=== PATIENT | female | born 1955 | race Caucasian/White ===

== ENCOUNTER 2019-04-14 18:37 | Emergency (ER) | payer MEDICAID ==
[~2019-04-14] VITALS: Ht 167.6 cm; Wt 73.6 kg
[~2019-04-14 18:37] MED LIST: ATOR10TA PO; MECL12.5 PO
[2019-04-14] MEDS ORDERED: HYDROcodone/acetaminophen 5mg/325mg tablet PO ONE (19:50)
[2019-04-14] MEDS ORDERED: HYDR-3965 PO (20:38)
[2019-04-14 20:52] VITALS: BP 117/72
== END 2019-04-14 20:51 | disposition home or self-care (01) ==
LOC: ER 18:37
DX: S30.0XXA Contusion of lower back and pelvis, initial encounter (principal); M53.3 Sacrococcygeal disorders, not elsewhere classified; Z79.899 Other long term (current) drug therapy; W01.0XXA Fall on same level from slipping, tripping and stumbling without subsequent striking against object, initial encounter; Y93.89 Activity, other specified; Y92.89 Other specified places as the place of occurrence of the external cause; Y99.8 Other external cause status
CPT/HCPCS: 72131; 72192; 99284

== ENCOUNTER 2024-02-18 06:44 | Day surgery (SDC) | payer MEDICARE, MEDICAID ==
[2024-02-18] VITALS (11 sets, daily range): BP systolic 70–111; BP diastolic 38–61; PULSE 50–66; RESP 16; TEMP 97.5; O2SAT 93–100
[~2024-02-18] VITALS: Ht 167.6 cm; Wt 61.5 kg
[~2024-02-18 06:44] MED LIST changes: +cefazolin 2gm/D5W 100mL 100 ML IV ONE
[2024-02-18] MEDS ORDERED: POTA8TAB69 PO (07:14)
[2024-02-18] MEDS ORDERED: LAXATIVE (07:14)
[2024-02-18] MEDS ORDERED: CARV6.253 PO (07:14)
[2024-02-18] MEDS ORDERED: ASPI81TA52 PO (07:14)
[2024-02-18] MEDS ORDERED: PRAV80TA3 PO (07:14)
[2024-02-18] MEDS ORDERED: APIX5TAB3 PO (07:14)
[2024-02-18] MEDS ORDERED: FURO20TA4 PO (07:17)
[2024-02-18 08:06] LABS: BASOPHILS % (AUTO) 0.8 % (0-1); EOSINOPHILS # (AUTO) 0.1 X10'3 (0-0.9); EOSINOPHILS % (AUTO) 2.9 % (0-6); HEMATOCRIT 47.2 % (35.0-45.0); HEMOGLOBIN 15.3 g/dl (12.0-16.0); LYMPHOCYTES # (AUTO) 1.6 X10'3 (1.1-4.8); LYMPHOCYTES % (AUTO) 36.7 % (21-51); MEAN CORPUSCULAR HEMOGLOBIN 28.3 PG (27.0-31.0); MEAN CORPUSCULAR HGB CONC 32.4 g/dL (33.0-36.5); MEAN CORPUSCULAR VOLUME 87.4 FL (78-98); MEAN PLATELET VOLUME 9.1 FL (7.4-10.4); MONOCYTES # (AUTO) 0.3 X10'3 (0-0.9); MONOCYTES % (AUTO) 7.8 % (2-12); NEUTROPHILS # (AUTO) 2.3 X10'3 (1.8-7.7); NEUTROPHILS % (AUTO) 51.8 % (42-75); PLATELET COUNT 173 X10'3 (140-440); WHITE BLOOD COUNT 4.4 X10'3 (4.5-11.0)
[2024-02-18] MEDS: vancomycin/NS 1 GM in NS 250 ML IV ONE (08:10)
[2024-02-18] MEDS: normal saline 1000ml 1,000 ML IV SCH (08:11)
[2024-02-18 08:30] LABS: ALBUMIN 3.7 G/DL (3.4-5.0); ANION GAP 8 (8-16); BLOOD UREA NITROGEN 15 MG/DL (7-18); BUN/CREATININE RATIO 16.9 (10.0-20.0); CALCIUM 9.5 MG/DL (8.5-10.1); CHLORIDE 109 MMOL/L (99-107); CREATININE 0.89 MG/DL (0.40-0.90); GLUCOSE 84 MG/DL (70-104); MAGNESIUM 2.2 MG/DL (1.5-2.4); POTASSIUM 3.4 MMOL/L (3.5-5.1); SODIUM 147 MMOL/L (135-145); TOTAL CARBON DIOXIDE 30.4 MMOL/L (24-32); eCRCL 57 ML/MIN; eGFR 63 ML/MIN
[2024-02-18] MEDS ORDERED: midazolam 1 mg/ML 2ml injection ONE ×2 (08:37→10:05)
[2024-02-18] MEDS ORDERED: vancomycin 1,000mg inj ONE (08:37)
[2024-02-18] MEDS ORDERED: LIDOcaine 1% W/epiNEPHrine 1:100,000 20ml vial ONE (08:37)
[2024-02-18] MEDS ORDERED: fentaNYL/PF 50MCG/1 ML 2ML syringe ONE (08:37)
[2024-02-18 09:38] LABS: PROTHROMBIN TIME 10.3 SECONDS (9.0-12.0)
[2024-02-18] MEDS ORDERED: HYDROmorphone 1 mg/ml syringe ONE (10:11)
[2024-02-18] MEDS ORDERED: HYDROcodone/acetaminophen 10/325mg tab PO PRN (11:15)
[2024-02-18] MEDS ORDERED: HYDROcodone/acetaminophen 5mg/325mg tablet PO PRN (11:15)
== END 2024-02-18 14:05 | disposition home or self-care (01) ==
LOC: SSTAY O 06:44
PROVIDERS: ATTEND Internal Medicine Cardiovascular Disease
DX: Z45.010 Encounter for checking and testing of cardiac pacemaker pulse generator [battery] (principal); I42.9 Cardiomyopathy, unspecified
CPT/HCPCS: 33229; 36415; 80048; 83735; 85025; 85610; 93005; 99152; 99153; A4615; C2621; J1170; J2250; J3010; J3370; J3490; J7030

== ENCOUNTER 2024-08-21 18:17 | Observation (INO) | payer MEDICARE, MEDICAID ==
[~2024-08-21] VITALS: Ht 165.1 cm; Wt 59.5 kg
[~2024-08-21 18:17] MED LIST changes: +APIX5TAB3 PO; +ASPI81TA52 PO; -ATOR10TA PO; +CARV6.253 PO; +FURO20TA4 PO; +LAXATIVE; -MECL12.5 PO; +POTA8TAB69 PO; +PRAV80TA3 PO; -cefazolin 2gm/D5W 100mL 100 ML IV ONE
[2024-08-21 18:52] LABS: MEAN PLATELET VOLUME 9.3 FL (7.4-10.4); WHITE BLOOD COUNT 7.4 X10'3 (4.5-11.0)
[2024-08-21 19:05] LABS: ALANINE AMINOTRANSFERASE 18 U/L (12-78); ALBUMIN 3.5 G/DL (3.4-5.0); ALBUMIN/GLOBULIN RATIO 0.8 (1.1-1.5); ALKALINE PHOSPHATASE 90 IU/L (46-116); ANION GAP 6 (8-16); BILIRUBIN,TOTAL 0.8 MG/DL (0.1-1.0); BLOOD UREA NITROGEN 12 MG/DL (7-18); BUN/CREATININE RATIO 13.2 (10.0-20.0); CALCIUM 9.9 MG/DL (8.5-10.1); CHLORIDE 105 MMOL/L (99-107); CREATININE 0.91 MG/DL (0.40-0.90); GLUCOSE 103 MG/DL (70-104); SODIUM 142 MMOL/L (135-145); TOTAL CARBON DIOXIDE 30.8 MMOL/L (24-32); TOTAL PROTEIN 7.7 G/DL (6.4-8.2); eCRCL 52 ML/MIN; eGFR 62 ML/MIN
[2024-08-21 19:13] LABS: PRO BRAIN NATRIURETIC PEPTIDE 406 PG/ML (0-125)
[2024-08-21 19:14] LABS: ASPARTATE AMINO TRANSFERASE 29 U/L (10-37); POTASSIUM 4.2 MMOL/L (3.5-5.1)
[2024-08-21 19:32] LABS: BASOPHILS % (AUTO) 0.4 % (0-1); EOSINOPHILS # (AUTO) 0.1 X10'3 (0-0.9); EOSINOPHILS % (AUTO) 1.7 % (0-6); HEMATOCRIT 48.8 % (35.0-45.0); LYMPHOCYTES # (AUTO) 1.8 X10'3 (1.1-4.8); LYMPHOCYTES % (AUTO) 24.7 % (21-51); MEAN CORPUSCULAR HEMOGLOBIN 29.4 PG (27.0-31.0); MEAN CORPUSCULAR HGB CONC 32.7 g/dL (33.0-36.5); MEAN CORPUSCULAR VOLUME 89.8 FL (78-98); MONOCYTES # (AUTO) 0.8 X10'3 (0-0.9); MONOCYTES % (AUTO) 10.5 % (2-12); NEUTROPHILS # (AUTO) 4.6 X10'3 (1.8-7.7); NEUTROPHILS % (AUTO) 62.7 % (42-75); PLATELET COUNT 245 X10'3 (140-440); RED BLOOD COUNT 5.43 X10'6 (4.20-5.60); RED CELL DISTRIBUTION WIDTH 16.6 % (11.5-14.5)
[2024-08-21] MEDS: aspirin 81mg tab.chew PO ONE (20:53)
[2024-08-21] MEDS: cyclobenzaprine 10mg tablet PO ONE (23:06)
[2024-08-21] MEDS: carVEDilol 3.125mg tablet PO SCH (23:07)
[2024-08-21] MEDS: apixaban 5mg tablet PO SCH (23:07)
[2024-08-21 23:19] LABS: APTT 27 SECONDS (22-32); INR 1.1 INR; PROTHROMBIN TIME 11.1 SECONDS (9.0-12.0)
[2024-08-22 03:37] LABS: BILIRUBIN,URINE NEGATIVE (Neg); CLARITY,URINE TURBID (Clear); COLOR,URINE YELLOW (Yellow); GLUCOSE, URINE NEGATIVE (Neg); KETONES,URINE TRACE mg/dl (Neg); LEUKOCYTE ESTERASE ,URINE NEGATIVE (Neg); NITRITES, URINE POSITIVE (Neg); OCCULT BLOOD,URINE NEGATIVE (Neg); PH,URINE 5.5 (4.8-8.0); PROTEIN,URINE NEGATIVE (Neg); UROBILINOGEN,URINE 0.2 E.U/dL (0.2-1.0)
[2024-08-22 03:46] LABS: BACTERIA,URINE 4+ /HPF (Neg); RBC,URINE NONE SEEN /HPF (0-2); SQUAMOUS EPITHELIAL CELL,UR FEW /LPF (FEW); UA COLLECTION TYPE CLN CATCH MIDSTREAM
[2024-08-22] MEDS ORDERED: magnesium sulf-water 2g/50mL 50 ML IV PRN (06:05)
[2024-08-22] MEDS ORDERED: mag hydrox/Alum hydrox/simeth 30ml oral suspension PO PRN (06:05)
[2024-08-22] MEDS ORDERED: magnesium hydroxide 30ml (MOM) UD suspension PO PRN (06:05)
[2024-08-22] MEDS ORDERED: potassium Cl 40MEQ/1/2NS 520ml 520 ML IV PRN (06:05)
[2024-08-22] MEDS ORDERED: magnesium sulf-water 4G/100mL 100 ML IV PRN (06:05)
[2024-08-22] MEDS ORDERED: ondansetron/PF 4mg/2ml inj IV PRN (06:05)
[2024-08-22] MEDS ORDERED: acetaminophen 325mg tablet PO PRN (06:05)
[2024-08-22] MEDS: docusate sod 100mg capsule PO SCH (08:00)
[2024-08-22 08:35] VITALS: BP 110/58; PULSE 58; RESP 17; TEMP 97.9; O2SAT 98
[2024-08-22] MEDS ORDERED: HYDROcodone/acetaminophen 5mg/325mg tablet PO PRN (10:55)
[2024-08-22] MEDS: morphine 2 MG/ML inj. syringe IV PRN (11:08)
[2024-08-22 15:45] LABS: CHOL/HDL RATIO 2.6 (0.00-4.99); CHOLESTEROL 158 MG/DL (0-200); HDL CHOLESTEROL 61 MG/DL (35-60); LDL CHOLESTEROL 77 MG/DL (50-100); TRIGLYCERIDES 58 MG/DL (20-135)
[2024-08-22] MEDS: pneumococcal 23-VAL P-sac vacc 25 mcg/0.5ml vial IMVAC ONE (16:20)
[2024-08-22] MEDS: FLU VACC TS2024-25(6MOS UP)/PF 45 MCG/0.5 ML SYRINGE IMVAC ONE (16:20)
[2024-08-22 17:30] VITALS: BP 88/44
[2024-08-22 17:45] VITALS: BP 90/57
[2024-08-22] MEDS: normal saline 1000ml 1,000 ML IV ONE (17:45)
[2024-08-22] MEDS: CefTRIAXone/D5W-Rocephin 1gm 50 ML IV SCH (17:46)
[2024-08-22 20:00] VITALS: RESP 16; O2SAT 94
[2024-08-22] MEDS: carvedilol 6.25mg tablet PO SCH (20:00)
[2024-08-22] MEDS ORDERED: apixaban 5mg tablet PO SCH (20:00)
[2024-08-22 20:05] VITALS: BP 97/40; PULSE 60; RESP 18; TEMP 98.1; O2SAT 97
[2024-08-22 22:00] VITALS: BP 103/50; PULSE 62; RESP 17; TEMP 97; O2SAT 95
[2024-08-22] MEDS: apixaban 5mg tablet PO SCH (23:00)
[2024-08-23 02:00] VITALS: BP 102/47; PULSE 59; RESP 14; TEMP 97.6; O2SAT 94
[2024-08-23 07:00] VITALS: BP 104/62; PULSE 63; RESP 13; TEMP 97.2; O2SAT 95
[2024-08-23] MEDS: furosemide 20MG tablet PO SCH (08:33)
[2024-08-23] MEDS: aspirin 81mg, enteric-coated 1 TAB TABLET.DR PO SCH (08:34)
[2024-08-23] MEDS: atorvastatin 20mg tablet PO SCH (08:34)
[2024-08-23] MEDS ORDERED: SULF1TAB48 PO (10:45)
[2024-08-23] MEDS ORDERED: EMPA10TA PO (10:45)
[2024-08-23] MEDS ORDERED: LISI2.5T14 PO (11:24)
[2024-08-23] MEDS ORDERED: HYDR-3965 PO (11:35)
== END 2024-08-23 12:40 | disposition home or self-care (01) ==
LOC: ER 18:18 → ED HOLD 08-22 06:11 → INTOOBSV 08-22 06:11 → SUR 3N 08-22 08:37 → PCU 3S 08-22 20:05
PROVIDERS: ADMIT Surgery Surgical Critical Care; ATTEND Surgery Surgical Critical Care
DX: M62.830 Muscle spasm of back (principal); I21.4 Non-ST elevation (NSTEMI) myocardial infarction; I25.10 Atherosclerotic heart disease of native coronary artery without angina pectoris; S09.90XA Unspecified injury of head, initial encounter; I50.20 Unspecified systolic (congestive) heart failure; R62.7 Adult failure to thrive; G71.00 Muscular dystrophy, unspecified; Z79.01 Long term (current) use of anticoagulants; Z79.82 Long term (current) use of aspirin; Z79.899 Other long term (current) drug therapy; Z68.21 Body mass index [BMI] 21.0-21.9, adult; W18.39XA Other fall on same level, initial encounter; Y93.89 Activity, other specified; Y92.89 Other specified places as the place of occurrence of the external cause; Y99.8 Other external cause status
CPT/HCPCS: 70450; 72131; 72148; 80053; 80061; 81001; 83880; 84484; 85610; 85730; 87077; 87186; 93005; 93306; 96365; 96375; 97161; 99285; A4615; G0378; 36415; 71045; 85025; 87081; 87088; 96376; 97530; J0696; J2270; J7030; J7040